=== PATIENT | male | born 1950 | race Caucasian/White ===

== ENCOUNTER 2017-11-23 22:16 | Emergency (ER) | payer OTHER ==
[~2017-11-23 22:16] MED LIST: FIORICET 50-301 EACH PO
--- NOTE | 2017-11-23 23:23 | ED GENERAL ADULT ---
History of Present Illness General Chief Complaint: General Adult Stated Complaint: L SIDE NUMBNESS X 4 DAYS AGO PER PT Source: patient, family, old records Exam Limitations: no limitations Vital Signs & Intake/Output Vital Signs & Intake/Output Vital Signs Date Time Temp Pulse Resp B/P B/P Pulse O2 O2 Flow FiO2 Mean Ox Delivery Rate 11/24 0301 98.0 65 18 165/98 97 Room Air 11/24 0149 98.5 64 18 168/99 95 Room Air 11/23 2221 98.6 80 18 166/99 96 Room Air ED Intake and Output 11/24 0000 11/23 1200 Intake Total 0 Output Total Balance 0 Intake, Oral 0 Allergies Coded Allergies: NO KNOWN ALLERGIES (12/12/12) Triage Note: PT TO TRIAGE WITH SON WHO BROUGHT PT STATING PT HAS BEEN EXHIBITING SOME AMS LATELY WELL LETHARGY. PT STATES HE HAD L SIDED NUMBNESS 4 DAYS AGO WITH HAND NUMBNESS THAT HAS SINCE SUBSIDED. PT DENIES CP, SOB. NIHSTROKE SCALE 0. A/OX3 IN TRIAGE. Triage Nurses Notes Reviewed? yes HPI: Patient is 67 Y M with no significant PMH presented to the ED with CC of left side numbness/weakness for the last 4 days. Son was present at the bedside and was contributing in history taking. Briefly according to patient's son he was in usual state of health until 4 days ago that he started to act strange, he was losing his keys more often, leaving phone at the bathroom, was less responsive, walking funny in terms of draggin his left foot on the ground. His son was also thinking he had drooling in the left side of face. Patient noted numbness in the left side of face, left arm, left body and the like, subjective weakness, feeling more tired and having no energy. Patient initially refused to come to ED but some was able to convince him to come to hospital today. Review of system is negative except above, denied any headache, dizziness, right eye ago, change in vision (has history of right sided cataract surgery), losing balance, loss of consciousness. He also denied any shortness of breathing, chest pain, dry skin, constipation, choking with food. Patient however endorsed out of stress at work recently but never looked for medical assistance. Patient reported he had a blood work done 3-4 months ago before cataract Surgery which was normal. Patient was last visited in ED in December 2015 for evaluation of Right arm numbness and was discharged symptoms suggesting migrain headache. Patient drinks alcohol occasionally, never smoke, no recreational drugs, no special diet. (Jennifer Toledo MD,Lucia Guardado) Reconcile Medications Aspirin (Aspirin*) 81 MG TAB.CHEW 1 TAB PO DAILY [place] Atorvastatin Calcium (Lipitor) 80 MG TABLET 1 TAB PO DAILY Stroke Butalb/Acetaminophen/Caffeine (Fioricet 50-300-40 MG Capsule) 1 EACH CAPSULE 1 TAB PO Q4H PRN HEADACHE (Miguel Daugherty MD) Past History Travel History Traveled to [place] past 21 day No Medical History Any Pertinent Medical History? see below for history Neurological: NONE EENT: cataracts Cardiovascular: NONE Respiratory: NONE Gastrointestinal: NONE Hepatic: NONE Renal: NONE Musculoskeletal: NONE Psychiatric: NONE Endocrine: NONE Blood Disorders: NONE Cancer(s): NONE COMPUTER BOOKKEEPER/Reproductive: NONE Surgical History Surgical History: non-contributory Psychosocial History Who do you live with Son Services at Home None What is your primary language Setswana Tobacco Use: Never used ETOH Use: occasional use Family History Hx Contributory? No (Jennifer Toledo MD,Lucia Guardado) Review of Systems Review of Systems Constitutional: Reports: see HPI. (Lucia Salinas MD) Review of Systems EENTM: Reports: no symptoms. Respiratory: Reports: no symptoms. Cardiovascular: Reports: no symptoms. GI: Reports: no symptoms. Genitourinary: Reports: no symptoms. Musculoskeletal: Reports: no symptoms. Skin: Reports: no symptoms. Neurological/Psychological: Reports: see HPI, numbness. Hematologic/Endocrine: Reports: no symptoms. Immunologic/Allergic: Reports: no symptoms. All Other Systems: Reviewed and Negative (Miguel Daugherty MD) Physical Exam Physical Exam General Appearance: well developed/nourished, no apparent distress, alert, awake , comfortable Head: atraumatic, normal appearance Eyes: Bilateral: normal appearance, PERRL, EOMI. Neck: supple Respiratory: normal breath sounds, chest non-tender Cardiovascular: regular rate/rhythm Gastrointestinal: soft, non-tender Neurologic/Psych: alert, oriented x 3, abnormal gait (Romberg normal), NIH scale reviewed 0, passed bedside swallow evaluation Core Measures ACS in differential dx? No CVA/TIA Diagnosis: Yes (Will rule out) Sepsis Present: No Sepsis Focused Exam Completed? No (Jennifer Toledo MD,Lucia Guardado) Physical Exam Ears, Nose, Throat: normal pharynx, normal ENT inspection, hearing grossly normal Peripheral Pulses: 4+ carotid (R), 4+ carotid (L) Back: normal inspection, normal range of motion, no vertebral tenderness Extremities: normal inspection, normal capillary refill, normal range of motion, no edema Reflexes: 2+: bicep (R), bicep (L). Skin: intact, normal color Lymphatic: no anterior cervical candis Core Measures CVA/TIA Diagnosis: Yes NIH Stroke Scale (24 Hours) NIH Stroke Scale (24 Hours) Response Value Level of Consciousness alert 0 LOC Questions answers both correctly 0 LOC Commands obeys both correctly 0 Best Gaze normal 0 Visual Correa no visual loss 0 Facial Paresis normal 0 Motor Arm - Left no drift 0 Motor Arm - Right no drift 0 Motor Leg - Left no drift 0 Motor Leg - Right no drift 0 Limb Ataxia no ataxia 0 Sensory normal 0 Best Language no aphasia 0 Dysarthria normal articulation 0 Extinction and Inattention no neglect 0 Total 0 Date Last Known Well: 11/12/17 Symptom start date: 11/12/17 Reason tPA not ordered Medical Contraindication Swallow Evaluation Pass Swallow eval date 11/24/17 Swallow eval time 0100 (Willow BURNS,Miguel) Progress Differential Diagnoses I considered the following diagnoses in my evaluation of the patient: [ peripheral neuropathy, B12 defic, DM, hypothyroid, TIA/stroke] Initial ED EKG: no change compared to prior (Jennifer Toledo MD,Lucia Guardado) Differential Diagnoses I considered the following diagnoses in my evaluation of the patient: Plan of Care: Orders Procedure Date/time Status Lab Add-on Test 11/25 35 Active THYROID STIMULATING HORMONE 11/24 14 Active GLYCOSYLATED HGB 11/24 14 Active FREE T4 11/24 14 Active VITAMIN B12 11/24 14 Active TROPONIN LEVEL 11/24 6 Active PARTIAL THROMBOPLASTIN TIME 11/24 6 Complete PROTHROMBIN TIME 11/24 6 Complete COMPREHENSIVE METABOLIC PANEL 11/24 6 Active CBC WITHOUT DIFFERENTIAL 11/24 6 Complete EKG 11/24 6 Active Laboratory Tests 11/24/17 0015: Anion Gap 9, Estimated GFR > 60, BUN/Creatinine Ratio 28.6 H, Glucose 157 H, Hemoglobin A1c Pending, Calcium 9.3, Total Bilirubin 0.5, AST 18, ALT 28, Alkaline Phosphatase 84, Troponin I < 0.01, Total Protein 6.8, Albumin 3.8, Globulin 3.0, Albumin/Globulin Ratio 1.3, Vitamin B12 322, TSH 1.590, Free T4 0.90, PT 11.5, INR 1.05, APTT 30, CBC w Diff NO MAN DIFF REQ, RBC 4.53 L, MCV 90.6, MCH 30.5, MCHC 33.7, RDW 14.3, MPV 9.4, Gran % 62.6, Lymphocytes % 26.9, Monocytes % 9.0, Eosinophils % 1.3, Basophils % 0.2, Absolute Granulocytes 5.4, Absolute Lymphocytes 2.3, Absolute Monocytes 0.8 H, Absolute Eosinophils 0.1, Absolute Basophils 0 (Miguel Daugherty MD) Departure Departure Condition: Stable Referrals: Jhonny BURNS,Farhat Freedman DO (PCP/Family) Additional Instructions: Please follow-up with neurologist, Dr. Barry during this week regarding continuation of care and looking for the source of stroke. Departure Forms: Customer Survey General Discharge Information Prescriptions: Current Visit Scripts Aspirin (Aspirin*) 1 TAB PO DAILY #30 TAB Atorvastatin Calcium (Lipitor) 1 TAB PO DAILY #[address] scan revealed chronic/subacute stroke. Considering patient was out of window it was decided to discharge patient on oral aspirin and statin for secondary prevention of new episodes. Patient was recommended to follow in outpatient setting with Dr. Barry for continuation of care and look for the source of stroke. (Jennifer Toledo MD,Lucia Guardado) Departure Disposition: HOME OR SELF CARE Clinical Impression Primary Impression: CVA (cerebral vascular accident) Resident Co-Sign Statement Statement: ED Attending supervision documentation- x I saw and evaluated the patient. I have also reviewed all the pertinent lab results and diagnostic results. I agree with the findings and the plan of care as documented in the Resident's documentation. [] I have reviewed the ED Record and agree with the Resident's documentation. [] Additions or exceptions (if any) to the Resident's note and plan are summarized below: [] (Miguel Daugherty MD) Critical Care Note Critical Care Note Critical Care Time: non-applicable (Miguel Daugherty MD)
[2017-11-24 00:31] LABS: ABSOLUTE BASOPHIL COUNT 0 /CUMM (0.0-0.2); ABSOLUTE EOSINOPHIL COUNT 0.1 /CUMM (0.0-0.7); ABSOLUTE GRANULOCYTE CT 5.4 /CUMM (1.4-6.5); ABSOLUTE LYMPH COUNT 2.3 /CUMM (1.2-3.4); ABSOLUTE MONOCYTE COUNT 0.8 /CUMM (0.10-0.60); BASOPHIL % 0.2 % (0.0-2.0); EOSINOPHIL % 1.3 % (0-5); GRANULOCYTE % 62.6 % (42.2-75.2); MEAN CORPUSCULAR HGB 30.5 PG (27.0-31.0); MEAN CORPUSCULAR HGB CONC 33.7 G/DL (33.0-37.0); MEAN CORPUSCULAR VOLUME 90.6 FL (80.0-94.0); MEAN PLATELET VOLUME 9.4 FL (7.4-10.4); PLATELET COUNT 214 /CUMM (130-400); RBC DISTRIBUTION WIDTH 14.3 % (11.5-14.5); RED BLOOD CELL CT 4.53 /CUMM (4.70-6.10); WHITE BLOOD CELL COUNT 8.6 /CUMM (4.8-10.8)
[2017-11-24 00:35] LABS: PT 11.5 SEC (9.4-12.5); PTT 30 SEC (25-37)
--- NOTE | 2017-11-24 00:52 | CT SCAN REPORT ---
EXAMINATION: CT HEAD WITHOUT CONTRAST CLINICAL INFORMATION: Numbness and weakness of the left side of the face and body for 3 days. Impaired balance. COMPARISON: Head CT 01/22/2016 TECHNIQUE: Contiguous axial imaging was performed from the skull base to vertex without intravenous contrast. DLP: 624 mGy-cm. FINDINGS: There is an area of loss of rey to white matter differentiation with hypoattenuation involving the right frontal lobe anteriorly. This could be a subacute or chronic infarct. This is new when compared to the head CT on 01/22/2016. Also new compared to the prior head CT are either lateral high frontoparietal regions of hypoattenuation. On the left this appears more hypoattenuating and likely chronic. On the right, this is hypoattenuating to a lesser degree and may be subacute. There is no evidence of acute intracranial hemorrhage. No abnormal mass effect or midline shift is seen. Rey to white matter differentiation is otherwise well preserved. No extra-axial fluid collections are identified. No hydrocephalus. No significant volume loss. There is no additional abnormal attenuation within the brain parenchyma. The osseous structures and soft tissues are normal. The mastoid air cells and visualized portions of the paranasal sinuses are well aerated. IMPRESSION: Multiple areas of loss of rey to white matter differentiation with hypoattenuation of the brain parenchyma which are new when compared to the prior CT 01/22/2016. These are of varying degrees of hypoattenuation, with the high left frontoparietal abnormality likely representing a chronic infarct. The high right frontoparietal region and the anterior right frontal region could represent subacute or chronic infarcts. In particular, the high right frontoparietal infarct is most suspicious for subacute timing. This critical result was discussed with Dr. Daugherty by telephone at 11/24/2017 12:45 AM and it was ascertained that the content and urgency of the report was understood at the time of direct communication.
[2017-11-24] MEDS ORDERED: ASPIRIN81 M4 PO (02:48)
[2017-11-24] MEDS ORDERED: LIPITOR80 M1 PO (02:48)
[2017-11-24 03:01] VITALS: BP 165/98
== END 2017-11-24 03:03 ==
LOC: ERH 22:16
PROVIDERS: Radiology Vascular & Interventional Radiology
DX: I63.9 Cerebral infarction, unspecified (principal); R53.1 Weakness
CPT/HCPCS: 93005; 93010